=== PATIENT | male | born 1960 | race Caucasian/White ===

== ENCOUNTER 2021-10-06 18:49 | Emergency (ER) | payer SELFPAY ==
--- NOTE | 2021-10-06 18:59 | ED.SKABFB ---
HPI - Skin/Abscess/Foreign Bdy General Chief complaint: Skin/Abscess/Foreign Body Stated complaint: rash Time Seen by Provider: 10/06/21 19:14 Source: patient and RN notes reviewed Mode of arrival: ambulatory Limitations: no limitations History of Present Illness HPI narrative: 61-year-old male presents with concern for rash on his forearm. Ports he was doing yard work on Sunday, he noticed 2 days later the rash appeared. He reports he has blisters and itchiness on his right forearm. He reports he began having itchy bumps on his left forearm without blisters and noticed 1 bump between his eyebrows today. He denies trouble breathing, swollen lips, tongue tongue. He reports he used a poison nubia wash on the area and has been applying hydrocortisone cream complaint: rash Related Data Allergies Allergy/AdvReac Type Severity Reaction Status Date / Time No Known Allergies Allergy Verified 10/06/21 19:15 Review of Systems Review of Systems: CONSTITUTIONAL: Denies malaise, chills, sweats, or fever. EYES: Denies redness, or discharge. ENT: Denies rhinorrhea, congestion, swollen lips, swollen tongue CARDIOVASCULAR: Denies chest pain, palpitations, or edema. RESPIRATORY: Denies cough or dyspnea. GASTROINTESTINAL: Denies abdominal pain, nausea, vomiting SKIN: Reports itchy rash with blisters on his right forearm, bumps on his left forearm MUSCULOSKELETAL: Denies joint pain or myalgia. NEUROLOGIC: Denies headache. All systems reviewed & are unremarkable except as noted in HPI and below PMFSH Comments At time of signature, agree with nursing past medical, surgical, social and family history. There is no relevant family history pertinent to the presenting complaint Exam Narrative: GENERAL: Well-appearing, well-nourished, and in no acute distress. HEAD: Normocephalic, atraumatic. EYES: PERRLA, conjunctivae clear, and EOMI. ENT: Mucous membranes moist. Oropharynx without edema, erythema or lesions. NECK: Supple. No lymphadenopathy CHEST: Clear to auscultation. No respiratory distress. HEART: Regular rate and rhythm. SKIN: Warm, dry. Patches of yellow fluid-filled vesicles noted to the right forearm with surrounding erythematous papules, erythematous papules noted to the left forearm NEURO: Alert and oriented x3. PSYCH: Normal mood and affect Course Course Emergency Course: Patient is aware of diagnosis, understands and agrees to treatment plan. Anticipatory guidance given. Patient agrees to follow-up as directed and is aware of reasons to seek care at the emergency department. Portions of this record may have been created with voice recognition software Level of Care: Express Care Visit Vital Signs Vital signs: Reviewed. MDM - Skin/Abscess/Foreign Bdy MDM Narrative Medical decision making narrative: Does not appear at this time to be erythema multiforme, bullous, SJS, TEN; no evidence at this time to suggest RMSF, endocarditis or Lyme disease; patient looks well, nontoxic and is tolerating oral intake; no neurologic signs or symptoms; no headache, photophobia or neck pain; afebrile; appropriate for initial outpatient treatment; discussed the importance of follow-up, patient agrees; question, viral exanthema, contact dermatitis, allergic dermatitis, eczema, urticaria, scabies, shingles. No soft palate or uvula edema, no tongue, lip edema or other mucosal involvement, no respiratory compromise, no stridor, no wheezing, no wheezing, no history of syncope, no hypotension, no nausea, vomiting, or diarrhea. Instructed patient to go to nearest ER immediately for any worsening symptoms including but not limited to: fever, spreading rash, pain, sore throat, headache, dizziness, chest pain, trouble breathing, or any symptoms concerning to the patient. Critical Care Time Critical Care Time Critical Care Time: No Discharge Plan Discharge Clinical Impression: Contact dermatitis Patient Disposition: Home, Self-Care Condition:
[2021-10-06 19:09] VITALS: BP 135/82; PULSE 69; RESP 19; TEMP 36.7; O2SAT 99
== END 2021-10-06 19:26 | disposition home or self-care (01) ==
PROVIDERS: Emergency Provider Nurse Practitioner
DX: L25.9 Unspecified contact dermatitis, unspecified cause (principal); Z87.891 Personal history of nicotine dependence
CPT/HCPCS: 99213; G0463

== ENCOUNTER 2022-12-21 18:34 | Emergency (ER) | payer BC, SELFPAY ==
--- NOTE | ~2022-12-21 | XR_ITS ---
EXAMINATION: XR chest 2V DATE: 12/21/2022 19:03 INDICATION: Cough and fever TECHNIQUE: PA and lateral views of the chest are obtained. COMPARISON: None available FINDINGS: There is a masslike opacity of the right upper lobe. No pleural effusion or pneumothorax. T he cardiomediastinal silhouette is normal. There is mild thoracic spondylosis. IMPRESSION: 1. Masslike opacity of the right upper lobe, probable pneumonia given patient's history. Recommend fo llow-up radiographs after appropriate therapy. Reviewed, dictated and finalized at location [facility]. IMPRESSION: 1. Masslike opacity of the right upper lobe, probable pneumonia given patient's history. Recommend follow-up radiographs after appropriate therapy.
--- NOTE | 2022-12-21 18:40 | ED.FEVER ---
HPI - Fever General Chief Complaint: Fever Stated Complaint: low grade fever for x weeks Source: patient, family and RN notes reviewed History of Present Illness HPI Narrative: 62 yo F presents to urgent care with at side. PT states he has been having a fever, almost every day, for the last 3 weeks. Pt states the first week he was running the fever continuously and it was reaching 102 F. Pt states after the 1st week, he began taking ibuprofen and/or Tylenol which will bring the fever down but not prevent it from returning. Pt states the fevers are worse at nighttime. Pt does report a slight cough and states he was very SOB and did not feel well at all this past Sunday when he was doing some manual labor. Denies any sore throat, ear pain, congestion, chest pain, abnormal back pain, abdominal pain, N/V/D, dysuria, or hemoptysis. Pt did take 2 covid tests at home that were negative. Related Data Allergies Allergy/AdvReac Type Severity Reaction Status Date / Time No Known Allergies Allergy Verified 12/21/22 18:58 Review of Systems Review of Systems: CONSTITUTIONAL: fevers EYES: Denies visual changes, redness, or discharge. ENT: Denies otalgia and sore throat CARDIOVASCULAR: Denies chest pain, palpitations, or edema. RESPIRATORY: + cough and dyspnea on Sunday. GASTROINTESTINAL: Denies abdominal pain, nausea, vomiting, or diarrhea. GENITOURINARY: Denies dysuria or hematuria. SKIN: Denies rash or itching. MUSCULOSKELETAL: Denies back pain, joint pain, or myalgia. NEUROLOGIC: Denies headache, numbness, or weakness. Pertinent positives per HPI. PMFSH Comments At the time of my signature, I reviewed and agree with the nursing past medical, surgical, social, and family history. There is no relevant family history pertinent to the patient complaint. Exam Narrative: GENERAL: This is a well-nourished, well-developed patient, in no apparent distress. HEAD: normocephalic, atraumatic. EYES: Sclera clear/white. Vision is grossly intact. EARS: External ears normal, auditory canals clear and without drainage, TMs normal without perforation. Hearing grossly intact. NOSE: External nose normal with no obvious nasal discharge, nares without redness, no rhinorrhea. THROAT: Mucous membranes moist, posterior pharynx clear. NECK: Neck supple, non-tender without lymphadenopathy, masses or thyromegaly. CARDIOVASCULAR: Regular rate and rhythm without murmurs, gallops, or rubs. RESPIRATORY: Clear to auscultation. Breath sounds equal bilaterally. No wheezes, rales, or rhonchi. GASTROINTESTINAL: Abdomen soft, non-tender, nondistended. Bowel sounds are active. No hepato-splenomegaly, or palpable masses. No guarding. SKIN: warm, intact with no suspicious lesions or rash, good texture and turgor. NEURO: awake, alert, and oriented to person, place and time. There were no obvious focal neurologic abnormalities. EXTREMITIES: No clubbing, cyanosis, or edema. No joint tenderness, effusion, or edema noted. BACK: Nontender without deformity or crepitus. No flank tenderness. Course Course Emergency Course: Patient is aware of diagnosis, understands and agrees to treatment plan. Anticipatory guidance given. Patient agrees to follow-up as directed and is aware of reasons to seek care at the emergency department. Portions of this record may have been created with voice recognition software Level of Care: Express Care Visit Vital Signs Vital signs: Vital Signs Oxygen Delivery Room Air 12/21/22 18:43 Temperature 98.4 F 12/21/22 18:44 Pulse Rate 67 12/21/22 18:44 Respiratory Rate 18 12/21/22 18:44 Blood Pressure 121/72 12/21/22 18:44 Pulse Oximetry 99 12/21/22 18:44 Oxygen Delivery Room Air 12/21/22 18:44 reviewed MDM - Fever MDM Narrative Medical decision making narrative: Take the antibiotics as directed. Get plenty of fluids and electrolytes (coconut water, Pedialyte are great sources). Get plenty of
[2022-12-21 18:44] VITALS: BP 121/72; PULSE 67; RESP 18; TEMP 36.9; O2SAT 99
--- NOTE | 2022-12-21 19:14 | PC.NURSE ---
PT HAS TAKEN 2 COVID TESTS THAT WERE NEGATIVE OVER THE PAST 3 WEEKS.
== END 2022-12-21 19:21 | disposition home or self-care (01) ==
PROVIDERS: Emergency Provider Nurse Practitioner Family
DX: J18.9 Pneumonia, unspecified organism (principal)
CPT/HCPCS: 71046; 99213; G0463

== ENCOUNTER → 2023-01-03 09:12 | Outpatient (CLI) | payer BC, SELFPAY ==
--- NOTE | ~2023-01-03 | XR_ITS ---
Clinical Indication: Pneumonia PA and lateral views of the chest: Comparison: 12/21/2022 Findings: Right upper lobe consolidation is similar to minimally improved from prior exam.. Cardiome diastinal silhouette is within normal limits. Bones and soft tissues are unremarkable. Impression: Right upper lobe pneumonia is similar to minimally improved from prior exam. Reviewed, dictated and finalized at [facility]. Impression: Right upper lobe pneumonia is similar to minimally improved from prior exam.
--- NOTE | ~2023-01-03 | XR_ITS ---
Lumbosacral Spine: AP and lateral views Clinical History: Pain Findings: The normal lordotic curve is maintained. There are probable L5 pars interarticularis defect s, with 15 mm anterolisthesis of L5 over S1. There is mild to moderate degenerative disc narrowing th roughout the lumbar spine. There is advanced facet arthropathy at L4-L5 and L5-S1. There is moderate facet arthropathy at L3-L4. The sacroiliac joints are normally outlined. Impression: Probable bilateral L5 pars interarticularis defects, with 15 mm anterolisthesis of L5 over S1. Additional moderate to advanced degenerative changes, as above. Reviewed, dictated and finalized at location [facility]. Impression: Probable bilateral L5 pars interarticularis defects, with 15 mm anterolisthesis of L5 over S1. Additional moderate to advanced degenerative changes, as above.
== END ==
PROVIDERS: PCP Emergency Medicine; Visit Provider Emergency Medicine
DX: M51.36 Other intervertebral disc degeneration, lumbar region (principal); J18.9 Pneumonia, unspecified organism; Z87.01 Personal history of pneumonia (recurrent); Z87.891 Personal history of nicotine dependence
CPT/HCPCS: 71046; 72100

== ENCOUNTER 2023-02-01 10:03 | Outpatient (CLI) | payer BC, SELFPAY ==
[2023-02-01 10:35] LABS: Basophils Absolute Auto 0.1 K/mm3 (0.0-0.1); Basophils Percent Auto 0.9 % (0.2-1.2); Eosinophils Absolute Auto 0.3 K/mm3 (0-0.3); Hematocrit 40.4 % (42.0-52.0); Hemoglobin 12.8 g/dL (14.0-18.0); Immature Granulocyte Absolute 0.01 K/mm3 (0.00-0.031); Immature Granulocyte Percent A 0.2 % (0-0.5); Lymphocytes Percent Auto 37.4 % (18.3-44.2); Mean Corpuscular HGB Conc 31.7 g/dl (32-36); Mean Corpuscular Hemoglobin 29.7 pg (26-34); Mean Corpuscular Volume 93.7 fl (80-100); Mean Platelet Volume 9.6 fl (7.4-10.4); Monocytes Absolute Auto 0.5 K/mm3 (0.1-0.6); Monocytes Percent Auto 8.4 % (2.6-8.5); Neutrophils Absolute Auto 2.5 K/mm3 (1.3-6.7); Neutrophils Percent Auto 47.1 % (45.5-73.1); Platelet Count Result 288 k/mm3 (150-375); Red Blood Count 4.31 M/mm3 (4.6-6.20); Red Cell Distribution Width 13.1 % (11.5-14.5); White Blood Count 5.4 K/mm3 (4.5-10.0)
[2023-02-01 12:57] LABS: INR 0.9; Prothrombin Time 12.4 Seconds (11.1-14.7)
[2023-02-01 12:58] LABS: Partial Thromboplastin Time 30.5 SECONDS (22.3-36.8)
[2023-02-01 12:59] LABS: Fibrinogen 385 mg/dl (215-510)
[2023-02-01 13:17] LABS: Iron 69 ug/dL (49-181)
[2023-02-01 13:27] LABS: Alanine Aminotransferase 46 U/L (6-50); Albumin Level 4.6 g/dL (3.5-5.1); Alkaline Phosphatase 63 U/L (38-126); Anion Gap 10 mmol/L (8-16); Aspartate Amino Transferase 39 U/L (17-59); Bilirubin,Total 0.4 mg/dL (0.2-1.3); Blood Urea Nitrogen 14 mg/dL (9-20); Calcium 9.2 mg/dL (8.4-10.2); Carbon Dioxide 28 mmol/L (22-30); Chloride 105 mmol/L (98-107); Estimated Glomerular Filt Rate > 60; Glucose 104 mg/dL (65-110); Potassium 4.3 mmol/L (3.4-5.0); Sodium 143 mmol/L (137-145)
[2023-02-01 13:28] LABS: Percent Iron Saturation 16 % (20-50)
[2023-02-01 14:57] LABS: Folic Acid > 20.0 ng/mL (2.76->20)
[2023-02-05 09:00] LABS: Methylmalonic Acid 86 nmol/L (87-318)
[2023-02-06 10:28] LABS: Soluble Transferrin Receptor 1.15 mg/L (0.76-1.76)
== END 2023-02-01 10:04 | disposition home or self-care (01) ==
LOC: ANHLAB 10:05
PROVIDERS: Nurse Practitioner Family; PCP Emergency Medicine; Visit Provider Internal Medicine Hematology & Oncology
DX: D64.9 Anemia, unspecified (principal); R79.1 Abnormal coagulation profile
CPT/HCPCS: 36415; 80053; 82607; 82728; 82746; 83540; 83550; 83921; 84238; 85025; 85384; 85610; 85730

== ENCOUNTER → 2023-02-01 10:50 | Outpatient (CLI) | payer BC, SELFPAY ==
--- NOTE | ~2023-02-01 | XR_ITS ---
Clinical Indication: Right upper lobe pneumonia PA and lateral views of the chest: Comparison: 01/03/2023 Findings: Right upper lobe pneumonia is improved. There are streaky opacities in the right upper lobe currently, which could reflect residual postoperative scarring versus minimal residual pneumonia. Le ft lung clear. Cardiomediastinal silhouette is within normal limits. Bones and soft tissues are unre markable. Impression: Right upper lobe pneumonia is significantly improved. Residual streaky opacities in right upper lobe could reflect residual pneumonia versus post inflammatory scarring. Reviewed, dictated and finalized at location . [facility] Impression: Right upper lobe pneumonia is significantly improved. Residual streaky opacitie s in right upper lobe could reflect residual pneumonia versus post inflammatory scarring.
== END ==
PROVIDERS: PCP Emergency Medicine; Visit Provider Emergency Medicine
DX: J18.1 Lobar pneumonia, unspecified organism (principal)
CPT/HCPCS: 71046